=== PATIENT | female | born 1975 | race Asian ===

== ENCOUNTER → 2023-07-23 08:29 | Outpatient (REF) | payer BC, SELFPAY | LOC: HWRCS 08:29 | PROVIDERS: ATTENDING PHYSICIAN Internal Medicine Cardiovascular Disease | DX: R00.2 Palpitations (principal); R53.83 Other fatigue | CPT/HCPCS: 93306 ==

== ENCOUNTER → 2024-08-04 13:25 | Outpatient (REF) | payer BC, SELFPAY | LOC: RCS 13:25 | PROVIDERS: ATTENDING PHYSICIAN Internal Medicine Cardiovascular Disease | DX: Z85.3 Personal history of malignant neoplasm of breast (principal); T45.1X5S Adverse effect of antineoplastic and immunosuppressive drugs, sequela | CPT/HCPCS: 93306; 93356 ==